=== PATIENT | female | born 1970 | race Caucasian/White ===

== ENCOUNTER 2019-06-16 16:17 | Outpatient (CLI) | payer OTHER, SELFPAY ==
--- NOTE | ~2019-06-16 | US_ITS ---
EXAMINATION: US thyroid DATE: 06/16/2019 17:09 INDICATION: Hypothyroidism TECHNIQUE: Multiple ultrasound images of the thyroid were obtained. COMPARISON: 06/02/2017 FINDINGS: The right thyroid lobe measures 5.0 x 1.8 x 1.8 cm. The left thyroid lobe measures 6.0 x 2.0 x 2.2 c m. The thyroid isthmus measures 6 mm in thickness. No significant interval change in a 1.9 cm wider t franco tall solid hypoechoic nodule in the inferior right thyroid with well-defined margins and without internal echogenic foci (TI-RADS 4, moderately suspicious, FNA if >=1.5 cm, annual followup is >1 cm) . Similar-appearing 9 mm TI RADS 4 nodule at the left side of the thyroid isthmus. There is normal ec hotexture, echogenicity and vascular flow throughout the thyroid gland. IMPRESSION: 1. Solid TI RADS 4 nodule measuring 1.9 cm at the inferior right thyroid and 0.9 cm at the left side of the thyroid isthmus. Recommend ultrasound-guided biopsy of the larger right thyroid nodule. Reviewed, dictated and finalized at location A. IMPRESSION: 1. Solid TI RADS 4 nodule measuring 1.9 cm at the inferior right thyroid and 0. 9 cm at the left side of the thyroid isthmus. Recommend ultrasound-guided biops y of the larger right thyroid nodule.
== END 2019-06-16 16:18 | disposition home or self-care (01) ==
LOC: ANHIMG 16:22
PROVIDERS: PCP Family Medicine; Visit Provider Physician Assistant
DX: E03.9 Hypothyroidism, unspecified (principal)
CPT/HCPCS: 76536

== ENCOUNTER 2019-06-28 13:13 | Outpatient (CLI) | payer OTHER, SELFPAY ==
--- NOTE | ~2019-06-28 | US_ITS ---
EXAMINATION: US FNA w image guidance DATE: 06/28/2019 14:07 INDICATION: Right thyroid nodule. TECHNIQUE: The procedure and its benefits, risks, and benefits were discussed with the patient. Risks specifical ly discussed included bleeding. The patient verbalized understanding of the risks and agreed to proce ed. The neck was prepped and draped in the usual sterile manner. 1% lidocaine was used for local ane sthesia. 5 passes were made with a 25G needle into the lesion. Appropriate needle location was docu mented with continuous sonographic guidance. There were no immediate complications. The patient unde rstood to call the ordering physician for results after a week and a half and verbalized that underst anding. FINDINGS: Grayscale ultrasound images demonstrate needles advanced into a 19 mm nodule in posterior inferior ri ght thyroid lobe for biopsy. IMPRESSION: 1. Ultrasound-guided fine needle aspiration of a right thyroid nodule. Reviewed, dictated and finalized at location A.
== END 2019-06-28 13:14 | disposition home or self-care (01) ==
LOC: ANHIMG 13:16
PROVIDERS: Visit Provider Physician Assistant
DX: E03.9 Hypothyroidism, unspecified (principal)
CPT/HCPCS: 10005; 88108; 88173; 88305

== ENCOUNTER 2021-08-06 15:23 | Outpatient (CLI) | payer OTHER, SELFPAY ==
[2021-08-06 17:32] LABS: Free T4 Free Thyroxine 2.12 ng/mL (0.78-2.19); Vitamin D 25 Hydroxy 56.4 ng/mL
[2021-08-06 17:45] LABS: Thyroid Stimulating Hormone 0.074 uIU/mL (0.465-4.680)
== END 2021-08-06 15:24 | disposition home or self-care (01) ==
LOC: ANHWCLAB 15:26
PROVIDERS: Visit Provider Internal Medicine Endocrinology, Diabetes & Metabolism
DX: E03.9 Hypothyroidism, unspecified (principal); R79.89 Other specified abnormal findings of blood chemistry; E55.9 Vitamin D deficiency, unspecified
CPT/HCPCS: 36415; 82306; 84439; 84443